=== PATIENT | male | born 1950 | race Caucasian/White ===

== ENCOUNTER → 2018-01-23 | Outpatient (CLI) | payer OTHER | END | disposition home or self-care (01) | LOC: NUCLEAR 07:00 | DX: I11.9 Hypertensive heart disease without heart failure (principal); E11.9 Type 2 diabetes mellitus without complications; I24.8 Other forms of acute ischemic heart disease; I27.20 Pulmonary hypertension, unspecified | CPT/HCPCS: 78452; 93017; A9500; J0153 ==